=== PATIENT | female | born 1950 | race Caucasian/White ===

== ENCOUNTER 2017-10-05 15:58 | Emergency (ER) | payer OTHER ==
[~2017-10-05] VITALS: Ht 152.4 cm; Wt 57.7 kg
[2017-10-05 16:09] VITALS: TEMP 36.6; Ht 152.4 cm; Wt 57.7 kg
[2017-10-05] MEDS ORDERED: KETOROLAC TROMETHAMINE 60 MG/2 ML VIAL IM STA (16:45)
[2017-10-05] MEDS ORDERED: IBUP-1050 PO (16:56)
[2017-10-05] MEDS ORDERED: TYLOTC500 PO (16:56)
[2017-10-05] MEDS ORDERED: PRLSR20 PO (16:56)
--- NOTE | 2017-10-05 17:11 | DIAGNOSTIC IMAGING REPORT ---
AP PELVIS, LEFT HIP 2 VIEWS HISTORY: left hip pain COMPARISON: None. FINDINGS: There is no fracture or dislocation. Soft tissues are unremarkable. The bones are osteopenic. Surgical clips within the pelvis. Mild osteoarthritis within the bilateral hips. The sacrum appears intact. IMPRESSION: Mild osteoarthritis within the bilateral hips. No fracture or dislocation. Electronically signed by: Rik Veras M.D. 10/05/2017 5:09 PM Dictated Date/Time: 10/05/2017 5:07 PM
--- NOTE | 2017-10-05 17:14 | EMERGENCY ROOM VISIT NOTE ---
ED Visit Note First contact with patient: 16:19 CHIEF COMPLAINT: Left hip pain HISTORY OF PRESENT ILLNESS: This 66-year-old female patient presents to the emergency department, ambulatory, complaining of 3 day history of increased left hip pain. The patient reports a history of arthritis in bilateral hips and sciatica in her low back. She cleans houses for living, and over the past 2 weeks has increased her activity level at work. She states she has been going up and down ladders more often than normal. She states 3 days ago, the pain really flared up while she was bending and lifting tree branches. She states she has been having difficulty sleeping due to the increased pain. She has been taking intermittent Tylenol and ibuprofen without relief of her pain. The patient states the pain has been waking her up at night. She did sit in a hot bathtub last night multiple times with only mild relief in her symptoms. She contacted her PCP, and has an appointment scheduled for tomorrow, however she has not been in to see the PCP in 2 years. She last had x-rays of the hip several years ago. She denies any numbness or tingling, but does report some sciatica pain radiating down the left side of her upper leg. This is consistent with previous history of sciatica. She denies any loss of bowel or bladder function. She denies any weakness or falls. She denies any obvious injury. She states she noticed the pain flareup with overuse. REVIEW OF SYSTEMS: A 10 system review of systems was performed with positives and pertinent negatives listed in the history of present illness. All other systems were reviewed and are negative. ALLERGIES: Penicillin, sulfa MEDICATIONS: Prilosec PMH: GERD SOCIAL HISTORY: The patient lives locally with family. She denies drug, alcohol , tobacco use. PHYSICAL EXAM: VITAL SIGNS - Vital signs and nursing notes were reviewed. GENERAL -66-year-old female appears stated age and in noticeable discomfort throughout the exam. MUSCULOSKELETAL -left hip without erythema, edema, and ecchymosis. Moderate tenderness to palpation appreciated over the left hip joint and pelvis. Mild tenderness extending into the left upper leg or buttocks. Bilateral lower extremity strength 5/5.. Pt has full AROM at affected joint. No tenderness to palpation appreciated in the lumbar spine distribution. RIK (MIGUEL) TEST: Negative NEUROLOGIC/VASCULAR - Neurovascularly intact distally with +3/5 dorsalis pedis pulses palpated bilaterally. Appropriate sensation to light and sharp touch appreciated distally. RADIOLOGY: AP PELVIS, LEFT HIP 2 VIEWS HISTORY: left hip pain COMPARISON: None. FINDINGS: There is no fracture or dislocation. Soft tissues are unremarkable. The bones are osteopenic. Surgical clips within the pelvis. Mild osteoarthritis within the bilateral hips. The sacrum appears intact. IMPRESSION: Mild osteoarthritis within the bilateral hips. No fracture or dislocation. Electronically signed by: Rik Veras M.D. 10/05/2017 5:09 PM Dictated Date/Time: 10/05/2017 5:07 PM EMERGENCY DEPARTMENT COURSE: The patient was seen and evaluated as above. She was given 60 mg Toradol IM and reassess. She does note moderate improvement in her discomfort. X-ray of the left hip and pelvis performed and reviewed by myself and radiologist as above. The patient's symptoms are consistent of arthritis pain, and she will be treated as such. She will be given a Medrol Dosepak to help with the sciatica symptoms she is experiencing as well as tramadol to be taken for severe breakthrough pain. The patient is encouraged to follow-up outpatient with the primary care provider at her scheduled appointment tomorrow, and was agreeable. We did discuss options for physical therapy, and she is planning on following up with her PCP. Discharge instructions reviewed, the patient was discharged home in good condition. I attest that I have personally reviewed the patient's current medication list. Blood Pressure Screening: Patient was found to have a slightly elevated blood pressure due to circumstances. I do not believe that the patient requires hypertension monitoring. Etiologies such as osteoarthritis, soft tissue injury, fracture, dislocation, neurovascular compromise, compartment syndrome, as well as others were entertained. DIAGNOSIS: Osteoarthritis of hip, left hip pain, sciatica The chart was completed utilizing [employer] voice recognition software. Grammatical errors, random word insertions, pronoun errors, and incomplete sentences are an occasional consequence of this system due to software limitations, ambient noise, and hardware issues. Any formal questions or concerns about the content, text, or information contained within the body of this dictation should be directly addressed to the provider for clarification. Current/Historical Medications Scheduled Acetaminophen (Tylenol), 1,000 MG PO Q6 Methylprednisolone (Medrol Dosepak), 0 PO DAILY Omeprazole (Prilosec), 20 MG PO DAILY Scheduled PRN Ibuprofen (Advil), 400 MG PO Q6 PRN for Pain Tramadol Hcl (Ultram), 50 MG PO Q6H PRN for Pain Allergies Coded Allergies: Penicillins (Verified Allergy, Severe, ANAPHYLAXIS, 10/05/17) Sulfa Antibiotics (Verified Allergy, Severe, ANAPHYLAXIS, 10/05/17) Vital Signs Date Time Temp Pulse Resp B/P (MAP) Pulse Ox O2 Delivery O2 Flow Rate FiO2 10/05/17 17:30 83 16 163/99 97 10/05/17 16:09 36.6 94 20 150/89 97 Room Air Medications Administered Medications (Trade) Dose Ordered Sig/Santiago Route Start Time Stop Time Status Last Admin Dose Admin Ketorolac Tromethamine (Toradol Inj) 60 mg NOW STAT IM 10/05/17 16:45 10/05/17 16:47 DC 10/05/17 17:00 60 MG Departure Information Impression Primary Impression: Osteoarthritis, hip, bilateral Additional Impressions: Left hip pain Sciatica of left side Dispostion Home / Self-Care Condition GOOD Prescriptions Methylprednisolone (MEDROL DOSEPAK) 4 Mg Gab 0 PO DAILY, #1 PKT Prov: Emily Harris PA-C 10/05/17 Tramadol Hcl (ULTRAM) 50 Mg Tab 50 MG PO Q6H Y for Pain, #10 TAB PRN PAIN Prov: Emily Harris PA-C 10/05/17 Referrals Lino Castro M.D. (PCP) Patient Instructions ED Exercises Lumbar Muscles, ED Sciatica, My [facility], Osteoarthritis Additional Instructions You have been treated in the Emergency Department for hip and back Pain. X- rays did not reveal any acute findings or causes of your pain. I suspect a flareup of the chronic arthritis and sciatica you have a history of. You have been prescribed tramadol to be used for pain control. This is a narcotic medication. You cannot drive or consume alcohol while on this medicine. This medicine should only be used for pain that cannot be controlled with [id number] pain medicines. You have been prescribed a Medrol Dosepak. This is a steroid which will help decrease your inflammation, redness, and itch. Take the medicine as prescribed. Take the ENTIRE 6 day course of the steroids. For pain control, you can use the following [id number]-[id number] medicines (if >12 yo): Ibuprofen(Motrin, Advil) may be used for fever or pain. Use 600mg every six hours as needed. Take with food. Avoid using more than 2400mg in a 24 hour period. Do not use 2400mg per day for more than three consecutive days without physician direction. Prolonged inappropriate use can lead to stomach upset or ulcers. (AND/OR) Acetaminophen(Tylenol) may be used for fever or pain. Use 1000mg every six hours as needed. Avoid using more than 3000mg in a 24 hour period. If this is an acute injury, ice can be applied to the area of pain for the first 3 days to help decrease pain and inflammation. After the first 3 days, a heating pad can be used over the area for continued soothing relief. You should schedule a follow-up appointment in 1-2 days with your Primary Care Provider for further evaluation and treatment of your back pain. As discussed, I do recommend physical therapy. Return to the Emergency Department if your current symptoms worsen despite treatment course outlined above, or if you develop any of the following symptoms : intractable pain despite aforementioned treatment course, loss of control of your bowel or bladder, numbness or tingling in your groin, or development of a fever. Problem Qualifiers Primary Impression: Osteoarthritis, hip, bilateral Osteoarthritis type: primary Qualified Codes: M16.0 - Bilateral primary osteoarthritis of hip
[2017-10-05] MEDS ORDERED: TRAM-453 PO (17:20)
[2017-10-05] MEDS ORDERED: METH4PAK PO (17:20)
[2017-10-05 17:30] VITALS: BP 163/99; PULSE 83; O2SAT 97
== END 2017-10-05 17:30 | disposition home or self-care (01) ==
LOC: C.EDB 16:00 → C.EDD 17:30
DX: M16.0 Bilateral primary osteoarthritis of hip (principal); M54.42 Lumbago with sciatica, left side; K21.9 Gastro-esophageal reflux disease without esophagitis; Z88.0 Allergy status to penicillin; Z88.2 Allergy status to sulfonamides; Z79.899 Other long term (current) drug therapy